=== PATIENT | female | born 1990 | race Caucasian/White ===

== ENCOUNTER 2021-04-22 14:14 | Emergency (ER) | payer OTHER ==
[~2021-04-22] VITALS: Ht 162.6 cm; Wt 91.6 kg
[2021-04-22 14:29] VITALS: BP 140/96
--- NOTE | 2021-04-22 14:35 | NUR ---
Pt placed in chair C.
[2021-04-22] MEDS ORDERED: CEPH-588 PO (14:58)
[2021-04-22] MEDS ORDERED: ONDA-24 PO (14:58)
[2021-04-22] MEDS ORDERED: PHEN-1877 PO (14:58)
[2021-04-22 15:03] VITALS: BP 140/96
--- NOTE | 2021-04-22 15:03 | NUR ---
Patient discharged with v/s stable. Written and verbal after care instructions given and explained. Patient alert, oriented and verbalized understanding of instructions. Ambulatory with steady gait. All questions addressed prior to discharge. ID band removed. Patient advised to follow up with PMD. Rx of Keflex, Zofran, Pyridium given. Patient educated on indication of medication including possible reaction and side effects. Opportunity to ask questions provided and answered.
== END 2021-04-22 15:03 | disposition home or self-care (01) ==
LOC: MED 14:14
DX: N39.0 Urinary tract infection, site not specified (principal); E07.9 Disorder of thyroid, unspecified
CPT/HCPCS: 81002; 81025; 99283

== ENCOUNTER 2021-05-11 23:56 | Emergency (ER) | payer OTHER ==
[~2021-05-11] VITALS: Ht 167.6 cm; Wt 90.7 kg
[~2021-05-11 23:56] MED LIST: CEPH-588 PO; ONDA-24 PO; PHEN-1877 PO
[2021-05-12 00:18] VITALS: BP 140/83
--- NOTE | 2021-05-12 00:21 | NUR ---
TO LOBBY A/W BED AMBULATORY
--- NOTE | 2021-05-12 01:10 | NUR ---
SEEN AND EXAMINED BY RENE
[2021-05-12] MEDS ORDERED: KETOROLAC 30 MG/ML VIAL IM ONE (01:15)
[2021-05-12 01:16] LABS: APPEARANCE,URINE CLOUDY (CLEAR); BILIRUBIN,URINE NEGATIVE (NEGATIVE); BLOOD, URINE TRACE-I (NEGATIVE); COLOR,URINE YELLOW (YELLOW); LEUKOCYTE ESTERASE ,URINE TRACE (NEGATIVE); NITRITE, URINE NEGATIVE (NEGATIVE); UGLUCOSE NEGATIVE (NEGATIVE)
[2021-05-12 01:23] LABS: RBC,URINE 0-5 /HPF (0-5)
[2021-05-12 01:29] LABS: BASOPHILS % (AUTO) 0.3 % (0.0-2.0); EOSINOPHILS % (AUTO) 0.2 % (0.0-4.0); HEMATOCRIT 37.8 % (36-48); HEMOGLOBIN 12.7 g/dL (12.0-16.0); LYMPHOCYTES # (AUTO) 1.3 K/uL (2.5-16.5); LYMPHOCYTES % (AUTO) 8.9 % (20.5-51.1); MEAN CORPUSCULAR HEMOGLOBIN 31 pg (27-31); MEAN CORPUSCULAR HGB CONC 34 g/dL (33-37); MEAN CORPUSCULAR VOLUME 90.6 fL (80-94); MONOCYTES # (AUTO) 0.6 K/uL (0.8-1.0); MONOCYTES % (AUTO) 3.9 % (1.7-9.3); NEUTROPHILS # (AUTO) 12.4 K/uL (1.8-7.7); NEUTROPHILS % (AUTO) 86.7 % (42.2-75.2); PLATELET COUNT (AUTO) 330 K/uL (140-450); RED BLOOD CELL COUNT(AUTO) 4.17 MIL/uL (4.20-5.40); RED CELL DISTRIBUTION WIDTH 12.6 % (11.6-13.7); WHITE BLOOD COUNT (AUTO) 14.3 K/uL (4.8-10.8)
[2021-05-12 01:45] LABS: ALBUMIN 3.8 g/dL (3.4-5.0); ANION GAP 13.2 (8-16); CREATININE 0.7 mg/dL (0.6-1.3); POTASSIUM 4.2 mmol/L (3.5-5.1); TOTAL BILIRUBIN 0.2 mg/dL (0.0-1.0)
--- NOTE | 2021-05-12 02:44 | NUR ---
PT AMBULATED TO BED 01.
[2021-05-12] MEDS ORDERED: KETOROLAC 30 MG/ML VIAL ONE (02:46)
[2021-05-12] MEDS ORDERED: CIPR500T4 PO (02:46)
[2021-05-12] MEDS ORDERED: cefTRIAXone 1,000 MG VIAL ONE (03:00)
--- NOTE | 2021-05-12 03:00 | NUR ---
RECEIVED IN BED 1 WITH C/O LOWER ABD PAIN, RADIATING TO BACK STARTED TONIGHT.
== END 2021-05-12 04:15 | disposition home or self-care (01) ==
LOC: MED 23:56
DX: N39.0 Urinary tract infection, site not specified (principal); E07.9 Disorder of thyroid, unspecified; Z79.899 Other long term (current) drug therapy; Z98.890 Other specified postprocedural states
CPT/HCPCS: 36415; 80053; 81001; 81025; 85025; 87086; 96365; 96372; 99284; J0696; J1885

== ENCOUNTER 2022-03-26 23:31 | Emergency (ER) | payer OTHER ==
[~2022-03-26] VITALS: Ht 165.1 cm; Wt 88.9 kg
[~2022-03-26 23:31] MED LIST changes: +CIPR500T4 PO; +ONDA-188 PO; -ONDA-24 PO
[2022-03-27 00:02] VITALS: BP 148/84
--- NOTE | 2022-03-27 00:23 | NUR ---
Dr. Espana examining patient.
[2022-03-27 01:40] VITALS: BP 137/72
--- NOTE | 2022-03-27 01:40 | NUR ---
Patient discharged with v/s stable. Written and verbal after care instructions given and explained. Patient verbalized understanding. Ambulatory with steady gait. All questions addressed prior to discharge. Advised to follow up with PMD.
== END 2022-03-27 01:40 | disposition home or self-care (01) ==
LOC: MED 23:31
DX: R07.89 Other chest pain (principal); R53.1 Weakness; R68.83 Chills (without fever); E07.9 Disorder of thyroid, unspecified; Z79.899 Other long term (current) drug therapy
CPT/HCPCS: 71045; 93005; 99283

== ENCOUNTER 2022-04-04 01:32 | Emergency (ER) | payer OTHER ==
[~2022-04-04] VITALS: Ht 165.1 cm; Wt 86.2 kg
[2022-04-04 01:45] VITALS: BP 138/107
--- NOTE | 2022-04-04 01:52 | NUR ---
TP LOBBY FOLLOWING TRIAGE
--- NOTE | 2022-04-04 04:12 | NUR ---
PT TO BED AT THIS TIME WITH RN
--- NOTE | 2022-04-04 04:19 | NUR ---
MD. CHAPA AT EVALUATING THE PT.
[2022-04-04] MEDS ORDERED: KETOROLAC 30 MG/ML VIAL IM ONE (04:40)
--- NOTE | 2022-04-04 05:20 | NUR ---
PT MEDICATED ORDERED.
--- NOTE | 2022-04-04 05:47 | NUR ---
PT TAKEN OFF UNIT TO X-RAY.
[2022-04-04] MEDS ORDERED: NAPR-54 PO (05:55)
[2022-04-04 06:13] VITALS: BP 133/64
--- NOTE | 2022-04-04 06:16 | NUR ---
PT DISCHARGED HOME. A/I REVIEWED WITH PT. PT TO F/U WITH PMD IN 1-2 DAYS. PT DX WITH PHARYNGITIS. INSTRUCTED PT TO TAKE NAPROSYN ORDERED BY MD FOR ANY PAIN OR DISCOMFORT. PT INSTRUCTED TO NOTIFY PMD OF ANY CHANGES IN CONDITION. PT INSTRUCTED TO RETURN TO ER IF CONDITION WORSENS AND TO CALL 911 IN CASE OF AN EMERGENCY. PT DISCHARED IN STABLE CONDITON WITH DISCHARGED PAPERS IN HAND. PT AMBULATED OUT WITHOUT ASSIST.
== END 2022-04-04 06:20 | disposition home or self-care (01) ==
LOC: MED 01:32
DX: F45.8 Other somatoform disorders (principal); J02.9 Acute pharyngitis, unspecified; E07.9 Disorder of thyroid, unspecified; Z79.899 Other long term (current) drug therapy
CPT/HCPCS: 70360; 96372; 99283; J1885